=== PATIENT | female | born 1960 | race Caucasian/White ===

== ENCOUNTER → 2021-08-18 | Outpatient (CLI) | payer OTHER ==
--- NOTE | 2021-08-18 17:21 | RAD ---
Exam Date: 08/18/2021 11:13 AM XR HIP (WITH OR WITHOUT PELVIS) 1 VIEW Indication: Reason: ARTHRITIS IN BOTH HIPS / Spl. Instructions: / History: . FINDINGS/ IMPRESSION: No acute fracture or dislocation. There are mild degenerative changes in the hips bilaterally with m ild joint space narrowing and small osteophytes. Alignment is maintained. Degenerative changes are noted in the lower lumbar spine, SI joints, and pubic symphysis. The soft tissues are within normal limits. Electronically signed by: Wade English MD (08/18/2021 5:19 PM) [id number]
--- NOTE | 2021-08-19 10:56 | RAD ---
XR HAND 2 VIEWS 08/18/2021 11:13 AM INDICATION: Arthritis in hands COMPARISON: None available. TECHNIQUE: 2 views of the right and single view of the left hand provided. FINDINGS/ IMPRESSION: 1. Left hand: There is no acute fracture or dislocation. There is moderate joint space narrowing of t he distal interphalangeal joint of the fifth digit with flexion deformity. Findings suggestive of mod erate osteoarthrosis. Bone mineralization is within normal limits. Regional soft tissues are within n ormal limits. There is no soft tissue gas or osseous erosion. No radiopaque foreign body. 2. Right hand: There is no acute fracture or dislocation. Mild interphalangeal joint space narrowing with more moderate joint space narrowing involving the distal interphalangeal joint fifth digit with flexion deformity, similar to the contralateral side. Mild osteoarthrosis of the first carpometacarpa l joint. Bone mineralization is within normal limits. Regional soft tissues are within normal limits. There is no soft tissue gas or osseous erosion. No radiopaque foreign body. Electronically signed by: Claudia Hardin MD (08/19/2021 10:53 AM) [id number]
== END ==
LOC: RAD 10:48
PROVIDERS: ATTEND Anesthesiology Pain Medicine
DX: M16.0 Bilateral primary osteoarthritis of hip (principal); M25.751 Osteophyte, right hip; M25.752 Osteophyte, left hip; M25.851 Other specified joint disorders, right hip; M25.852 Other specified joint disorders, left hip; M47.816 Spondylosis without myelopathy or radiculopathy, lumbar region; M19.041 Primary osteoarthritis, right hand; M19.042 Primary osteoarthritis, left hand
CPT/HCPCS: 73521; 73120-50